=== PATIENT | male | born 2000 | race Caucasian/White ===

== ENCOUNTER 2024-09-02 11:30 | Emergency (ER) | payer OTHER, SELFPAY ==
--- NOTE | 2024-09-02 11:34 | ED_ITS ---
HPI - Extremity Injury (Lower) General Chief Complaint: Extremity Injury, Lower Stated Complaint: Right Ankle Injury Time Seen by Provider: 09/02/24 11:34 Source: patient Mode of arrival: ambulatory Limitations: no limitations History of Present Illness HPI Narrative: Justin is a 24-year-old male patient presenting to the clinic today with complaints of right ankle pain/injury. He reports he rolled his ankle last night at work when he was putting away a cutting board. Has and pain to the right lateral ankle. Is able to walk on it. Related Data Home Medications ?Medication ?Instructions ?Recorded ?Confirmed ?Last Taken ?Type No Home Medications 09/02/24 09/02/24 Unknown History Allergies Allergy/AdvReac Type Severity Reaction Status Date / Time No Known Allergies Allergy Verified 09/02/24 11:57 Review of Systems Review of Systems: Pertinent positives per HPI. Patient denies any fever, chills, rash, headache, visual changes, dizziness, cough, runny nose, sore throat, shortness of breath, chest pain, palpitations, nausea, vomiting, diarrhea, constipation, abdominal pain, or any urinary issues. PMFSH Comments At the time of my signature, I reviewed and agree with the nursing past medical, surgical, social, and family history. There is no relevant family history pertinent to the patient complaint. Exam Narrative: General: Well-developed, well nourished, in no apparent distress Head: Normocephalic, atraumatic. Cardio: Regular rate and rhythm, s1 and s2 normal, no murmur appreciated. Resp: Clear to auscultation bilaterally, no rhonchi, rales, wheezing or rubs. Musculoskeletal: No deformity, right lateral ankle swelling and tender to palpation, grossly normal range of motion, pain with plantar flexion against resistance as well as valgus and varus maneuver, muscle strength strong and equal, peripheral pulse strong, no edema, no cyanosis, normal gait and station Course Course Emergency Course: Portions of this record may have been created with voice recognition software. Level of Care: Express Care Visit Vital Signs Vital signs: Vital Signs Temperature 36.6 C 09/02/24 11:40 Pulse Rate 86 09/02/24 11:40 Respiratory Rate 18 09/02/24 11:40 Blood Pressure 129/69 09/02/24 11:40 Pulse Oximetry 100 09/02/24 11:40 Oxygen Delivery Room Air 09/02/24 11:40 Temperature 36.6 C 09/02/24 11:40 Pulse Rate 86 09/02/24 11:40 Respiratory Rate 18 09/02/24 11:40 Blood Pressure 129/69 09/02/24 11:40 Pulse Oximetry 100 09/02/24 11:40 Oxygen Delivery Room Air 09/02/24 11:40 Vital signs reviewed MDM - Extremity Injury (Lower) MDM Narrative Medical decision making narrative: At the time of visit patient is resting comfortably on the exam table. Patient appears to be nontoxic. Diagnostics: X-ray of the right ankle was performed and was negative for any sign of fracture or malalignment. Plan: I suspect patient has a right ankle sprain. Emir wrap was given. Supportive measures were discussed with the patient and they voiced understanding discharge instructions and agrees to treatment plan. Return precautions reviewed Differential Diagnosis Differential diagnosis: Likely ankle sprain and strain and ankle fracture Discharge Plan Discharge Clinical Impression: Right ankle sprain Qualifiers: Encounter type: initial encounter Involved ligament of ankle: unspecified ligament Qualified Code(s): S93.401A - Sprain of unspecified ligament of right ankle, initial encounter Patient Disposition: Home Condition: Stable Instructions: Antibiotic Form, Ankle Sprain (ED) Additional Instructions: X-rays negative for any sign of fracture or malalignment of the right ankle. Rest, ice, elevate, and wear emir wrap as directed Tylenol/motrin for pain as discussed. Gradually bear weight No running or sports until healed. Follow up with your PCP if symptoms persist more than 1 week. Patient Language: Monegasque Prescriptions: No Action No Home Medications Follow-up/Referrals: UNKNOWN,DOCTOR [Non-Staff] - Stand Alone Forms: Work/School Release IP Time of Disposition: 12:07 Quality NIHSS Nursing Documentation ED NIHSS nursing documentation: reviewed/agree
[2024-09-02 11:40] VITALS: BP 129/69; PULSE 86; RESP 18; TEMP 36.6; O2SAT 100
== END 2024-09-02 12:10 | disposition home or self-care (01) ==
PROVIDERS: Emergency Provider Nurse Practitioner Family
DX: S93.401A Sprain of unspecified ligament of right ankle, initial encounter (principal); X50.9XXA Other and unspecified overexertion or strenuous movements or postures, initial encounter; Y99.0 Civilian activity done for income or pay
CPT/HCPCS: 73610; 99203; G0463